=== PATIENT | male | born 1960 | race Caucasian/White ===

== ENCOUNTER 2017-05-11 23:28 | Inpatient (IN) | payer MEDICARE, MEDICAID ==
[~2017-05-11] VITALS: Ht 167.6 cm; Wt 98.0 kg
[~2017-05-11 23:28] MED LIST changes: -AMOX1TAB9 PO; -LACO150T4 PO; -LAMO25TA60 PO; -LISI5TAB25 PO; -MELO-207 PO
[2017-05-11] MEDS ORDERED: EMS NS 0.9%(*) 1000 ML BAG 1,000 ML IV ONE (23:35)
[2017-05-11] MEDS ORDERED: ONDANSETRON 4 MG/2 ML VIAL IVP ONE (23:35)
[2017-05-11] MEDS ORDERED: fentaNYL CITR 100 MCG/2 ML AMP IVP ONE (23:35)
--- NOTE | 2017-05-11 23:43 | ER Report ---
History and Physical Time Seen By MD: 23:42 Hx. of Stated Complaint: PT REPORTS THAT HE HAS SEVERE LOWER RIGHT QUAD PAIN. DENIES NAUSEA, VOMITING, DIARRHEA. HPI/ROS This is a 57-year-old male with a past medical history significant for hypertension and a seizure disorder. He states that he started to have right lower quadrant and right inguinal abdominal pain that started yesterday morning. It worsened throughout the day such that he said the pain brought him to tears while even at rest just before coming to the emergency department. No fever or chills. Does report anorexia. Pain is worse with movement. No dysuria. Has had nausea but no vomiting. Last ate or drank at 2330 when he drank a diet Pepsi. 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 ENGINEER 11/03/15 Reported Medications Lamotrigine (LAMOTRIGINE) 200 Mg Tablet, 200 MG PO DAILY 11/03/15 Lisinopril (LISINOPRIL) 20 Mg Tablet, 20 MG PO QDAY, TAB 11/03/15 Triamterene/Hydrochlorothiazid (TRIAMTERENE-HCTZ 37.5-25 MG CP) 1 Each Capsule, 1 EACH PO DAILY, CAPSULE 11/03/15 Past Medical/Surgical History Hypertension and seizure disorder Reviewed Nurses Notes: Yes Old Medical Records Reviewed: Yes Hx Smoking: No Smoking Status: Never Smoker Hx Substance Use Disorder: No Hx Alcohol Use: Yes (QUIT DRINKING 32 YEARS AGO) Constitutional Vital Sign - Last 24 Hours 05/11/17 05/11/17 05/11/17 05/12/17 23:45 23:55 23:57 00:00 Pulse 82 79 B/P (MAP) 82/54 (63) 95/54 (68) 88/56 (67) Pulse Ox 92 97 05/12/17 05/12/17 05/12/17 00:00 00:30 00:45 Pulse 90 90 B/P (MAP) 117/71 (86) Pulse Ox 100 99 O2 Flow Rate 2.0 Physical Exam General Appearance: The patient is alert, has no immediate need for airway protection and no signs of toxicity. Eyes: Pupils equal and round no pallor or injection. ENT, Mouth: Mucous membranes are moist. Respiratory: There are no retractions, lungs are clear to auscultation. Cardiovascular: Regular rate and rhythm. Gastrointestinal: RLQ TTP, guarding, rebound TTP of the RLQ Neurological: grossly normal strength and sensation Skin: Warm and dry, no rashes. Musculoskeletal: Neck is supple non tender. Extremities are nontender, nonswollen and have full range of motion. [ ] DIFFERENTIAL DIAGNOSIS: After history and physical exam differential diagnosis was considered for abdominal pain including but not limited to appendicitis, cholecystitis, gastritis and urinary tract infection. Medical Decision Making Data Points Result Diagram: 05/11/17 2303 05/11/17 2303 Laboratory Hematology Test 05/11/17 01:12 05/11/17 23:03 Urine Color Yellow Urine Clarity Clear Urine pH 6.0 pH (4.8-9.5) Urine Specific [place] 1.046 Urine Protein Negative mg/dL (NEGATIVE) Urine Glucose (UA) Negative mg/dL (NEGATIVE) Urine Ketones Negative mg/dL (NEGATIVE) Urine Blood Negative (NEGATIVE) Urine Nitrite Negative (NEGATIVE) Urine Bilirubin Negative (NEGATIVE) Urine Urobilinogen 2.0 mg/dL (0.2-1.9) Urine Leukocyte Esterase Negative (NEGATIVE) Urine RBC None /HPF (0-2/HPF) Urine WBC 1 /HPF (0-5/HPF) Urine Squamous Epithelial Cells None /LPF (</=FEW) Urine Bacteria Negative /HPF (NONE-FEW) Urine Mucus Few /HPF (NONE-FEW) Red Blood Count 5.96 M/uL (4.00-5.60) Mean Corpuscular Volume 84.1 fL (80.0-96.0) Mean Corpuscular Hemoglobin 28.0 pg (26.0-33.0) Mean Corpuscular Hemoglobin Concent 33.3 g/dL (32.0-36.0) Red Cell Distribution Width 13.0 % (11.5-14.5) Mean Platelet Volume 8.5 fL (7.2-11.1) Neutrophils (%) (Auto) 60.7 % (39.4-72.5) Lymphocytes (%) (Auto) 28.8 % (17.6-49.6) Monocytes (%) (Auto) 7.8 % (4.1-12.4) Eosinophils (%) (Auto) 2.2 % (0.4-6.7) Basophils (%) (Auto) 0.5 % (0.3-1.4) Nucleated RBC Relative Count (auto) 0.0 /100WBC Neutrophils # (Auto) 8.6 K/uL (2.0-7.4) Lymphocytes # (Auto) 4.1 K/uL (1.3-3.6) Monocytes # (Auto) 1.1 K/uL (0.3-1.0) Eosinophils # (Auto) 0.3 K/uL (0.0-0.5) Basophils # (Auto) 0.1 K/uL (0.0-0.1) Nucleated RBC Absolute Count (auto) 0.01 K/uL Peripheral Blood Smear No Y/N Sodium Level 138 mmol/L (137-145) Potassium Level 4.0 mmol/L (3.5-5.0) Chloride Level 100 mmol/L (98-107) Carbon Dioxide Level 25 mmol/L (22-30) Blood Urea Nitrogen 22 mg/dl (9-21) Creatinine 1.40 mg/dl (0.66-1.25) Glomerular Filtration Rate Calc 52.1 Random Glucose 150 mg/dl (75-110) Calcium Level 10.0 mg/dl (8.4-10.2) Total Bilirubin 0.5 mg/dl (0.2-1.3) Aspartate Amino Transf (AST/SGOT) 21 U/L (0-35) Alanine Aminotransferase (ALT/SGPT) 26 U/L (0-56) Alkaline Phosphatase 127 U/L (0-126) Total Protein 7.1 gm/dl (6.3-8.2) Albumin 4.1 g/dl (3.5-5.0) Lipase 211 U/L (23-300) Chemistry Test 05/11/17 01:12 05/11/17 23:03 Urine Color Yellow Urine Clarity Clear Urine pH 6.0 pH (4.8-9.5) Urine Specific [place] 1.046 Urine Protein Negative mg/dL (NEGATIVE) Urine Glucose (UA) Negative mg/dL (NEGATIVE) Urine Ketones Negative mg/dL (NEGATIVE) Urine Blood Negative (NEGATIVE) Urine Nitrite Negative (NEGATIVE) Urine Bilirubin Negative (NEGATIVE) Urine Urobilinogen 2.0 mg/dL (0.2-1.9) Urine Leukocyte Esterase Negative (NEGATIVE) Urine RBC None /HPF (0-2/HPF) Urine WBC 1 /HPF (0-5/HPF) Urine Squamous Epithelial Cells None /LPF (</=FEW) Urine Bacteria Negative /HPF (NONE-FEW) Urine Mucus Few /HPF (NONE-FEW) White Blood Count 14.2 k/uL (4.5-11.0) Red Blood Count 5.96 M/uL (4.00-5.60) Hemoglobin 16.7 g/dL (14.0-18.0) Hematocrit 50.1 % (42.0-52.0) Mean Corpuscular Volume 84.1 fL (80.0-96.0) Mean Corpuscular Hemoglobin 28.0 pg (26.0-33.0) Mean Corpuscular Hemoglobin Concent 33.3 g/dL (32.0-36.0) Red Cell Distribution Width 13.0 % (11.5-14.5) Platelet Count 324 K/uL (150-450) Mean Platelet Volume 8.5 fL (7.2-11.1) Neutrophils (%) (Auto) 60.7 % (39.4-72.5) Lymphocytes (%) (Auto) 28.8 % (17.6-49.6) Monocytes (%) (Auto) 7.8 % (4.1-12.4) Eosinophils (%) (Auto) 2.2 % (0.4-6.7) Basophils (%) (Auto) 0.5 % (0.3-1.4) Nucleated RBC Relative Count (auto) 0.0 /100WBC Neutrophils # (Auto) 8.6 K/uL (2.0-7.4) Lymphocytes # (Auto) 4.1 K/uL (1.3-3.6) Monocytes # (Auto) 1.1 K/uL (0.3-1.0) Eosinophils # (Auto) 0.3 K/uL (0.0-0.5) Basophils # (Auto) 0.1 K/uL (0.0-0.1) Nucleated RBC Absolute Count (auto) 0.01 K/uL Peripheral Blood Smear No Y/N Glomerular Filtration Rate Calc 52.1 Calcium Level 10.0 mg/dl (8.4-10.2) Total Bilirubin 0.5 mg/dl (0.2-1.3) Aspartate Amino Transf (AST/SGOT) 21 U/L (0-35) Alanine Aminotransferase (ALT/SGPT) 26 U/L (0-56) Alkaline Phosphatase 127 U/L (0-126) Total Protein 7.1 gm/dl (6.3-8.2) Albumin 4.1 g/dl (3.5-5.0) Lipase 211 U/L (23-300) Urinalysis Test 05/11/17 01:12 Urine Color Yellow Urine Clarity Clear Urine pH 6.0 pH (4.8-9.5) Urine Specific [place] 1.046 Urine Protein Negative mg/dL (NEGATIVE) Urine Glucose (UA) Negative mg/dL (NEGATIVE) Urine Ketones Negative mg/dL (NEGATIVE) Urine Blood Negative (NEGATIVE) Urine Nitrite Negative (NEGATIVE) Urine Bilirubin Negative (NEGATIVE) Urine Urobilinogen 2.0 mg/dL (0.2-1.9) Urine Leukocyte Esterase Negative (NEGATIVE) Urine RBC None /HPF (0-2/HPF) Urine WBC 1 /HPF (0-5/HPF) Urine Squamous Epithelial Cells None /LPF (</=FEW) Urine Bacteria Negative /HPF (NONE-FEW) Urine Mucus Few /HPF (NONE-FEW) EKG/Imaging Imaging Results: CT scan of the abdomen and pelvis was obtained. The results of the study are acute appendicitis. The study was read by the radiologist. I viewed the images myself on the PACS system. ED Course/Re-evaluation ED Course 57-year-old male with acute episode of right lower quadrant pain that worsened throughout the day. Also with anorexia and nausea. CT scan of the abdomen and pelvis is consistent with acute appendicitis. Physical exam is also consistent with acute appendicitis given his right lower quadrant tenderness to palpation and guarding. He has been given Zosyn, and Dr. Mansfield has been consulted. The patient will be admitted, and go to the operating room in a few hours. Decision to Disposition Date: May 12, 2017 Decision to Disposition Time: 01:32 Depart Departure Latest Vital Signs Vital Signs Date Time Temp Pulse Resp B/P (MAP) Pulse Ox O2 Delivery O2 Flow Rate FiO2 05/12/17 00:45 90 99 05/12/17 00:30 117/71 (86) 05/12/17 00:00 2.0 Impression: Primary Impression: Appendicitis Condition: Improved Disposition: Admitted from ER Referrals: MAHI RIVAS (PCP) Problem Qualifiers Primary Impression: Appendicitis Appendicitis type: acute appendicitis Acute appendicitis type: with localized peritonitis Qualified Codes: K35.3 - Acute appendicitis with localized peritonitis JAMARI HOWE MD May 11, 2017 23:43
[2017-05-11 23:54] LABS: PLATELET COUNT, AUTOMATED 324 K/uL (150-450)
[2017-05-11] MEDS ORDERED: IOPAMIDOL 76% 75 ML INFUS BTL 75 ML ONE (23:55)
[2017-05-11] MEDS ORDERED: NS 0.9% 50 ML VIAL 50 ML ONE (23:55)
[2017-05-12] VITALS (30 sets, daily range): BP systolic 95–130; BP diastolic 53–68; Ht 167.6 cm; Wt 98.0 kg
--- NOTE | 2017-05-12 01:08 | RADIOLOGY IMAGING REPORT ---
FACILITY: [facility] [place] PATIENT NAME: Vicente Patton : 1960 MR: [id number] V: [id number] EXAM DATE: ORDERING PHYSICIAN: JAMARI HOWE TECHNOLOGIST: Location: [facility] [place] Patient: Vicente Patton : 1960 Visit/Account:[id number] Date of Sevice: 05/11/2017 EXAMINATION: CT abdomen with IV contrast CT pelvis with IV contrast History: Right lower quadrant tender to palpation TECHNIQUE: Spiral scan was through the abdomen and pelvis during injection of nonionic iodinated in travenous contrast. One of the following dose optimization techniques was utilized in the performance of this exam: Automated exposure control; adjustment of the mA and/or kV according to the patient's size; or use of an iterative reconstruction technique. Specific details can be referenced in the [facility]'s radiology CT exam operational policy. Contrast: 75 mL of IV Isovue-370. COMPARISON STUDIES: none. FINDINGS: Lower chest: negative Liver / biliary: 1 cm hypodensity in the right lobe of the liver probably a cyst but too small to marcin quately characterize. Pancreas: negative Spleen: negative Adrenal glands: negative Kidneys / retroperitoneum: Nonobstructing bilateral nephrolithiasis. Pelvic structures: negative Bowel / peritoneum / mesenteries: Inflamed appendix containing appendicolith. No evidence of abscess. Vessels: negative Musculoskeletal / Body wall: negative Lymph node assessment: negative IMPRESSION: 1. Acute appendicitis with presence of an appendicolith. No evidence of abscess. 2. Nonobstructing bilateral nephrolithiasis. Results were called to JAMARI HOWE at 0100 hours. . Report Dictated By: Med Davis MD at 05/12/2017 12:56 AM Report E-Signed By: Med Davis MD at 05/12/2017 1:02 AM WSN:[id number]
[2017-05-12] MEDS ORDERED: PIPERACILLIN/TAZO* 4.5 GM VIAL 4.5 GM in NS(*) 0.9% 100 ML ADDVANT BAG 100 ML IVPB ONE (01:15)
[2017-05-12] MEDS ORDERED: LISI5TAB25 PO (01:59)
[2017-05-12] MEDS ORDERED: LAMO25TA60 PO ×2 (01:59)
[2017-05-12] MEDS ORDERED: LAMO200T45 PO (01:59)
[2017-05-12] MEDS ORDERED: LACO150T4 PO (01:59)
[2017-05-12] MEDS ORDERED: MELO-207 PO (01:59)
[2017-05-12] MEDS ORDERED: LR(*) 1000 ML BAG 1,000 ML IV ONE (04:55)
[2017-05-12] MEDS ORDERED: PROMETHAZINE 25 MG/ML 1 ML AMP IVP PRN (04:55)
[2017-05-12] MEDS ORDERED: ACETAMINOPHEN(*)1000 MG/100 ML 100 ML IVPB ONE (04:55)
[2017-05-12] MEDS ORDERED: ONDANSETRON 4 MG/2 ML VIAL IVP PRN (04:55)
[2017-05-12] MEDS ORDERED: FLUSH 10 ML SYR IVP PRN (04:55)
[2017-05-12] MEDS ORDERED: LR(*) 1000 ML BAG 1,000 ML ONE (05:00)
--- NOTE | 2017-05-12 05:06 | Gen Surgery History & Physical ---
History of Present Illness Chief Complaint Abdominal pain History of Present Illness 57yo male presents with a 10 day h/o vague intermittent abdominal pain with constipation. Yesterday evening, about 9 hours ago it acutely worsened prompting him to present to the ER for evaluation. No F/C, no diarrhea, no N/ V. WBC 14K and CT c/w appendicitis with appendicolith. History Problems: (1) Hypertension Status: Chronic (2) Epilepsy Status: Chronic Home Meds Reported Medications Lamotrigine (LAMOTRIGINE) 200 Mg Tablet, 200 MG PO BID 05/12/17 Lamotrigine (LAMOTRIGINE) 25 Mg Tablet, 75 MG PO HS 05/12/17 Lamotrigine (LAMOTRIGINE) 25 Mg Tablet, 25 MG PO DAILY 05/12/17 Meloxicam (MELOXICAM) 15 Mg Tablet, 15 MG PO QDAY 05/12/17 Lacosamide (VIMPAT) 150 Mg Tablet, 150 MG PO BID 05/12/17 Lisinopril (LISINOPRIL) 5 Mg Tablet, 5 MG PO QDAY, TAB 05/12/17 Triamterene/Hydrochlorothiazid (TRIAMTERENE-HCTZ 37.5-25 MG CP) 1 Each Capsule, 1 EACH PO DAILY, CAPSULE 11/03/15 Discontinued Reported Medications Lamotrigine (LAMOTRIGINE) 200 Mg Tablet, 200 MG PO DAILY 11/03/15 Lisinopril (LISINOPRIL) 20 Mg Tablet, 20 MG PO QDAY, TAB 11/03/15 Discontinued Scripts Azithromycin (Z-PACK) 250 Mg Tablet, 250 MG PO QDAY, #6 DOSE-PACK take 2 today, then 1 every day until gone Prov:LIBBY IBANEZ 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 Review of Systems All Systems Reviewed/Normal: Yes, Except as Noted Constitutional: Fever Gastrointestinal: Constipation, Abdominal Pain Exam General Appearance: Alert, Awake, No Acute Distress, Afebrile Neuro: No Gross deficits Eyes: PERRLA GI: Other (Soft, diffuse lower abdominal TTP, focal peritonitis in RLQ) Extremities: Warm, Perfused Medical Decision Making Data Points Result Diagram: 05/11/17230205/11/172302 Assessment and Plan Problems: (1) Appendicitis Status: Acute Assessment & Plan: 05/12/17: Admit, NPO, IV fluids, IV abx, to OR for lap appy. I've explained appendicitis and its treatment in detail to the patient. I've also explained the surgery in detail as well as the alternatives and risks. He indicates his understanding of the PAR discussion and his questions have been answered. He would like to proceed with surgery. Condition Stable. Time Spent: < 30 min Venous Thromboembolism VTE Risk Physician Assess for VTE Risk: Yes Patient's VTE Risk: Low VTE Diagnostic Test 2 Days Prior to Admit: No Antithrombotics Is Pt On Any Antithrombotics?: No Problem Qualifiers (1) Appendicitis: Appendicitis type: acute appendicitis Acute appendicitis type: with localized peritonitis Qualified Codes: K35.3 - Acute appendicitis with localized peritonitis BINA BRAXTON MD May 12, 2017 05:06
[2017-05-12] MEDS ORDERED: PIPERACILLIN/TAZO*3.375GM VIAL 3.375 GM in NS(*) 0.9% 100 ML ADDVANT BAG 100 ML IVPB ONE (05:30)
[2017-05-12] MEDS ORDERED: fentaNYL CITR 100 MCG/2 ML AMP ONE (05:52)
[2017-05-12] MEDS ORDERED: LIDOCAINE MPF 1% 5 ML VIAL ONE (05:53)
[2017-05-12] MEDS ORDERED: ONDANSETRON 4 MG/2 ML VIAL ONE (05:53)
[2017-05-12] MEDS ORDERED: DEXAMETHASONE SOD PHOS 10MG/ML ONE (05:53)
[2017-05-12] MEDS ORDERED: PROPOFOL EMUL(*) 10MG/ML 20 ML 20 ML ONE (05:53)
[2017-05-12] MEDS ORDERED: MIDAZOLAM 2 MG/2 ML VIAL ONE (05:58)
[2017-05-12] MEDS ORDERED: SUCCINYLCHOL CHL 100MG/5ML SYR IVP ONE (06:15)
[2017-05-12] MEDS ORDERED: ROCURONIUM BROM 10 MG/ML 5 ML ONE (06:15)
[2017-05-12] MEDS ORDERED: SUGAMMADEX SOD 200 MG/2 ML SDV ONE (06:38)
--- NOTE | 2017-05-12 07:22 | Post Operative Progress Note ---
Post Operative Progress Note Date: May 12, 2017 Time: 07:08 Surgeon: Anthony Dictation number: [id number] Anesthesia: GETA by Dr. Grove Pre-Op Diagnosis: Acute appendicitis Post-Op Diagnosis: Perforated appendicitis Findings: Large appendicolith in mid-appendix with 2 perforations, 1 at the tip of the appendix and the second where the appendicolith was located. There was adjacent fecal material next to the appendix and free purulent fluid in RLQ and in pelvis. No organized abscess. Procedure(s): Lap appy Specimen Removed:(May be N/A): Appendix with intraluminal appendicolith Complications: None Fluids: See anesthesia record Estimated Blood Loss: Minimal Date OP Note Dictated: May 12, 2017 Time OP Note Dictated: 07:14 BINA BRAXTON MD May 12, 2017 07:22
[2017-05-12] MEDS: NS(*) 0.9% 1000 ML BAG 1,000 ML IV PRN ×3 (08:12→23:54)
[2017-05-12] MEDS: PANTOPRAZOLE SOD 40 MG IV VIAL IVP SCH (09:07)
--- NOTE | 2017-05-12 12:44 | ULLRICH LAP CHOLE ---
EVENT DATE: May 12, 2017 SURGEON: Cody Cruz MD ANESTHESIOLOGIST: Mohamud Grove MD ANESTHESIA: General endotracheal PREOPERATIVE DIAGNOSIS Acute appendicitis. POSTOPERATIVE DIAGNOSIS Perforated appendicitis. PROCEDURE PERFORMED Laparoscopic appendectomy. COMPLICATIONS None. CONDITION Stable. BLOOD LOSS Minimal. FINDINGS This patient had an obviously inflamed appendix that was adherent to the lower abdominal side wall with overlying adherent omentum. In the mid shaft of the appendix was a large appendicolith. There were two perforations, one at the level of the appendicolith in the side wall of the appendix, and one at the tip of the appendix. There was some adjacent fecal material next to the appendix. There was some adjacent fecal material next to the appendix. There was purulent fluid in the right lower quadrant down on the pelvis. There was no organized abscess. There was diffuse serositis on the small bowel in the bowel next to the right lower quadrant and in the pelvis. SPECIMENS Appendix and the appendicolith contained within in the appendix. INDICATIONS This is 57-year-old gentleman who presented to the emergency department with a complaint of persisting worsening abdominal pain, mainly in the right lower quadrant. He reports his symptoms have been going on intermittently for 10 days , but worse in the last 3 days, and then worse last night, prompting him to come into the emergency room around midnight. A CT scan was consistent with appendicitis, and so he was admitted and started on IV antibiotics and consented for a laparoscopic appendectomy. DESCRIPTION OF PROCEDURE The patient was brought into the operating room and placed supine on the operating table. General endotracheal anesthesia was administered and his abdomen was prepped and draped in a sterile fashion. Time out was completed, and I injected the infraumbilical skin with 0.5% ropivacaine plain and made a vertical midline incision going from the base of the umbilicus over the inferior umbilical rim, and then dissected down through the dermis and into subcutaneous fat. I identified the midline fascia, made an incision in the midline fascia, grasped the fascial edges with Jc clamps, and then bluntly entered the peritoneal cavity with my finger. I placed 2 interrupted #0-Vicryl sutures transversely through the vertical fascial defect and inserted a 12 mm Austin type port through this wound and secured it into place with the sutures. I insufflated his abdomen to a pressure of 15 mmHg and inserted a 5 mm, 30- degree angle scope through this port. Next, under direct visualization, I placed a 5 mm port in the suprapubic midline and a 5 mm port in the left lower quadrant. The patient was placed in Trendelenburg and planed towards his left to move the viscera away from the right lower quadrant. Immediately evident was purulent material down in the pelvis as well as the right lower quadrant that was evident even before I visualized the appendix. I then swept the small bowel away from the right lower quadrant as well as the omentum. The omentum was densely adhered to the lower abdominal side wall, and so I divided this with the harmonic scalpel. This uncovered the appendix, which was grossly inflamed. The tip of the appendix demonstrated a perforation. I then the appendix, which was adherent to the side wall due to the inflammatory process, and was able to mobilize it quite easy, and then when I got to the shaft, I saw feculent material coming out of a lateral wall perforation, and this was in the area where it was obviously dilated with an obstructing appendicolith in the mid shaft of the appendix. I was able to completely mobilize the appendix down to its base and could obviously see the cecum and divided the mesoappendix with the harmonic scalpel, and then divided the base of the appendix flush with the cecum with the Endo CHAR 45 mm stapler with a blue load. The appendix was placed in the surgical specimen retrieval bag and removed from the abdomen through the umbilical port site. I then irrigated the right lower quadrant as well as the pelvis, and removed all purulent and feculent-appearing material until the irrigation fluid ran clear. There was no bleeding from the divided mesoappendix or the staple line, and the staple line was flush with the cecum with no residual appendix remaining and no interference with the terminal ileum was it entered into the colon. I looked around the rest of the abdomen, did not find any other evidence of pathology, and no other fluid collections. At this point, I made sure I removed all of the irrigation fluid from the pelvis and right lower quadrant, had the anesthesiologist flatten the bed, and moved the bowel and omentum back down into its appropriate anatomic position, especially covering up the right lower quadrant and the operative site, and then removed the 5 mm ports, inspected their peritoneal surfaces for bleeding, and there was none. I removed the camera followed by the umbilical port and desufflated the abdomen. I placed a figure-of--eight #0-Vicryl suture transversely through the vertical fascial defect and tied all three of the sutures down with good reapproximation of the fascial edges and no remaining fascial defect. The skin at each port site was closed with 4-0 Monocryl running subcuticular sutures. The skin was cleaned and dried and Steri-Strips were applied followed by sterile surgical dressings. The patient was awakened and extubated in the operating room and transported to the recovery room in stable condition having tolerated the procedure without any apparent problems. CARMELITA
[2017-05-12] MEDS: PIPERACILLIN/TAZO*3.375GM VIAL 3.375 GM in NS(*) 0.9% 100 ML ADDVANT BAG 100 ML IVPB SCH ×2 (17:34→23:47)
[2017-05-12] MEDS: lamoTRIgine 100 MG TAB PO SCH (20:17)
[2017-05-12] MEDS: lamoTRIgine 25 MG TAB PO SCH (20:18)
[2017-05-12] MEDS ORDERED: PATIENT'S OWN MED PO SCH (21:00)
[2017-05-12] MEDS: MORPHINE 2 MG/ML SYR IVP PRN (23:47)
[2017-05-13] VITALS (9 sets, daily range): BP systolic 87–123; BP diastolic 54–67
[2017-05-13] MEDS: MORPHINE 2 MG/ML SYR IVP PRN ×3 (03:57→16:01)
[2017-05-13] MEDS: PIPERACILLIN/TAZO*3.375GM VIAL 3.375 GM in NS(*) 0.9% 100 ML ADDVANT BAG 100 ML IVPB SCH ×4 (05:17→23:18)
--- NOTE | 2017-05-13 06:16 | General Surgery Progress Note ---
Subjective Progress Notes Subjective C/O pain in right lower quadrant but improving. Passing flatus. No N/V. Feels hungry. Physical Exam Vital Signs Date Time Temp Pulse Resp B/P (MAP) Pulse Ox O2 Delivery O2 Flow Rate FiO2 05/13/17 04:00 98.0 78 16 97/61 (73) 93 Nasal Cannula 2.0 General Appearance: Alert, Awake, No Acute Distress, Afebrile GI: Other (Soft, appropriate postop TTP, dressings C/D/I.) Extremities: Warm, Perfused Result Diagram: 05/11/17 2303 05/11/173 Assessment and Plan Problems: (1) Appendicitis Status: Acute Assessment & Plan: 05/12/17: Admit, NPO, IV fluids, IV abx, to OR for lap appy. I've explained appendicitis and its treatment in detail to the patient. I've also explained the surgery in detail as well as the alternatives and risks. He indicates his understanding of the PAR discussion and his questions have been answered. He would like to proceed with surgery. 05/13/17: POD#1 s/p lap appy, perforated appendicitis. Doing well this morning. Will advance diet to clears and decrease IV fluids. Continue IV abx. If tolerates clears will start regular diet later today and convert meds to PO including PO abx with hope for d/c to home tomorrow on 7 days of PO abx. Condition Stable. Time Spent: < 30 min Exam Sepsis Risk: Sepsis Risk Problem Qualifiers (1) Appendicitis: Appendicitis type: acute appendicitis Acute appendicitis type: with localized peritonitis Qualified Codes: K35.3 - Acute appendicitis with localized peritonitis BINA BRAXTON MD May 13, 2017 06:16
[2017-05-13 08:12] LABS: PLATELET COUNT, AUTOMATED 168 K/uL (150-450)
[2017-05-13] MEDS: lamoTRIgine 100 MG TAB PO SCH ×2 (08:59→20:21)
[2017-05-13] MEDS: lamoTRIgine 25 MG TAB PO SCH ×2 (08:59→20:21)
[2017-05-13] MEDS ORDERED: LISINOPRIL 5 MG TAB PO SCH (09:00)
[2017-05-13] MEDS: PANTOPRAZOLE SOD 40 MG IV VIAL IVP SCH (09:00)
[2017-05-13] MEDS ORDERED: HCTZ PO SCH (09:00)
[2017-05-13] MEDS ORDERED: TRIAMTERENE PO SCH (09:00)
[2017-05-13] MEDS ORDERED: PATIENT'S OWN MED PO SCH (09:00)
[2017-05-13] MEDS: NS(*) 0.9% 1000 ML BAG 1,000 ML IV PRN (13:58)
[2017-05-14 03:43] VITALS: BP 124/64
[2017-05-14] MEDS: PIPERACILLIN/TAZO*3.375GM VIAL 3.375 GM in NS(*) 0.9% 100 ML ADDVANT BAG 100 ML IVPB SCH (05:52)
[2017-05-14] MEDS: NS(*) 0.9% 1000 ML BAG 1,000 ML IV PRN (05:54)
[2017-05-14 06:00] LABS: PLATELET COUNT, AUTOMATED 147 K/uL (150-450)
[2017-05-14 08:23] VITALS: BP 122/72
[2017-05-14] MEDS: LACOSAMIDE 150 MG TABLET PO SCH (08:31)
[2017-05-14] MEDS: TRIAMTERENE PO SCH (08:31)
[2017-05-14] MEDS: HCTZ PO SCH (08:31)
[2017-05-14] MEDS: lamoTRIgine 25 MG TAB PO SCH ×2 (08:33→20:27)
[2017-05-14] MEDS: lamoTRIgine 100 MG TAB PO SCH ×2 (08:33→20:27)
[2017-05-14] MEDS: LISINOPRIL 5 MG TAB PO SCH (08:33)
[2017-05-14] MEDS: PANTOPRAZOLE SOD 40 MG IV VIAL IVP SCH (08:34)
--- NOTE | 2017-05-14 09:22 | General Surgery Progress Note ---
Subjective Progress Notes Subjective can I have a diet Pepsi? Patient Complains of: Musculoskeletal: Impaired Mobility Physical Exam Vital Signs Date Time Temp Pulse Resp B/P (MAP) Pulse Ox O2 Delivery O2 Flow Rate FiO2 05/14/17 08:27 96 Nasal Cannula 2.0 05/14/17 08:23 97.9 67 18 122/72 (89) General Appearance: Alert, Awake Neuro: No Gross deficits Cardiovascular: Regular Rate and Rhythm Respiratory: Clear to Auscultation GI: Other (incisions dressed, soft, non tender, few bowel sounds.) Extremities: Edema (2+) Result Diagram: 05/14/1753205/14/17532 Assessment and Plan Problems: (1) Appendicitis Status: Acute Assessment & Plan: 05/12/17: Admit, NPO, IV fluids, IV abx, to OR for lap appy. I've explained appendicitis and its treatment in detail to the patient. I've also explained the surgery in detail as well as the alternatives and risks. He indicates his understanding of the PAR discussion and his questions have been answered. He would like to proceed with surgery. 05/13/17: POD#1 s/p lap appy, perforated appendicitis. Doing well this morning. Will advance diet to clears and decrease IV fluids. Continue IV abx. If tolerates clears will start regular diet later today and convert meds to PO including PO abx with hope for d/c to home tomorrow on 7 days of PO abx. 05/14/17: POD #2 S/P lap appendectomy for perforated appendicitis. He still has not had a bowel movement but has much flatus. Advance diet to full liquids, saline lock intravenous and allow Pepsi. He still has fullness so will not advance diet to regular. Should he have a bowel movement, will advance diet. Hopefully, ready for discharge tomorrow with po antibiotics. Exam Sepsis Risk: No Definite Risk Problem Qualifiers (1) Appendicitis: Appendicitis type: acute appendicitis Acute appendicitis type: with localized peritonitis Qualified Codes: K35.3 - Acute appendicitis with localized peritonitis LASHANDA ALMENDAREZ MD May 14, 2017 09:22
[2017-05-14] MEDS ORDERED: APAP/HYDROCODONE 325/5 TAB PO PRN (09:30)
[2017-05-14 10:53] VITALS: BP 112/66
[2017-05-14 15:36] VITALS: BP 131/76
[2017-05-14] MEDS: AMOX/CLAV 875 MG TAB PO SCH (16:24)
[2017-05-14 19:22] VITALS: BP 135/80
[2017-05-14 22:59] VITALS: BP 143/79
[2017-05-15 04:26] VITALS: BP 108/60
[2017-05-15 07:30] VITALS: BP 116/73
[2017-05-15] MEDS: AMOX/CLAV 875 MG TAB PO SCH ×2 (08:45→17:10)
[2017-05-15] MEDS: LISINOPRIL 5 MG TAB PO SCH (08:45)
[2017-05-15] MEDS: PANTOPRAZOLE SOD 40 MG IV VIAL IVP SCH (08:46)
[2017-05-15] MEDS: lamoTRIgine 100 MG TAB PO SCH ×2 (08:46→20:25)
[2017-05-15] MEDS: HCTZ PO SCH (08:46)
[2017-05-15] MEDS: lamoTRIgine 25 MG TAB PO SCH ×2 (08:46→20:25)
[2017-05-15] MEDS: LACOSAMIDE 150 MG TABLET PO SCH (08:46)
[2017-05-15] MEDS: TRIAMTERENE PO SCH (08:46)
--- NOTE | 2017-05-15 10:03 | General Surgery Progress Note ---
Subjective Progress Notes Subjective "Do I have to keep these leg things on? Patient Complains of: Gastrointestinal: Other (abdominal fullness/discomfort) Physical Exam Vital Signs Date Time Temp Pulse Resp B/P (MAP) Pulse Ox O2 Delivery O2 Flow Rate FiO2 05/15/17 07:55 Nasal Cannula 1.0 05/15/17 07:30 98.3 66 14 116/73 (87) 98 Intake and Output 05/16/17 07:01 Intake Total 700 ml Balance 700 ml Intake Oral 700 ml General Appearance: Alert, Awake, No Acute Distress Cardiovascular: Other (occasional sinus irregularity) Respiratory: Clear to Auscultation GI: Soft and Non-Tender, Other (distended, active bowel sounds, flatus, no bowel movement) Extremities: Warm, Other (decreased edema) Result Diagram: 05/14/1753205/14/17532 Assessment and Plan Problems: (1) Appendicitis Status: Acute Assessment & Plan: 05/12/17: Admit, NPO, IV fluids, IV abx, to OR for lap appy. I've explained appendicitis and its treatment in detail to the patient. I've also explained the surgery in detail as well as the alternatives and risks. He indicates his understanding of the PAR discussion and his questions have been answered. He would like to proceed with surgery. 05/13/17: POD#1 s/p lap appy, perforated appendicitis. Doing well this morning. Will advance diet to clears and decrease IV fluids. Continue IV abx. If tolerates clears will start regular diet later today and convert meds to PO including PO abx with hope for d/c to home tomorrow on 7 days of PO abx. 05/14/17: POD #2 S/P lap appendectomy for perforated appendicitis. He still has not had a bowel movement but has much flatus. Advance diet to full liquids, saline lock intravenous and allow Peps[employer]. He still has fullness so will not advance diet to regular. Should he have a bowel movement, will advance diet. Hopefully, ready for discharge tomorrow with po antibiotics. 05/16/17: POD#3 S/P lap appy for perforated appendicitis. He is not eating a regular diet yet so will advance. He is having some abdominal pain which I think is needing to have a bowel movement. Further, he is not walking alot yet because of issues with his hips. Try to use wheelchair or get his regular walker which has a seat on it so he can walk further. Probably home in am. Exam Sepsis Risk: No Definite Risk Problem Qualifiers (1) Appendicitis: Appendicitis type: acute appendicitis Acute appendicitis type: with localized peritonitis Qualified Codes: K35.3 - Acute appendicitis with localized peritonitis LASHANDA ALMENDAREZ MD May 15, 2017 10:03
[2017-05-15 11:47] VITALS: BP 132/76
[2017-05-15 15:05] VITALS: BP 134/70
[2017-05-15 19:21] VITALS: BP 122/70
[2017-05-15 23:05] VITALS: BP 131/86
[2017-05-16 03:41] VITALS: BP 114/70
[2017-05-16 07:44] VITALS: BP 101/70
[2017-05-16] MEDS: AMOX/CLAV 875 MG TAB PO SCH (07:53)
[2017-05-16] MEDS ORDERED: AMOX1TAB9 PO (08:00)
--- NOTE | 2017-05-16 08:02 | Short(Outpt) Discharge Summary ---
Discharge Summary Reason for Hosp/Final Diag: (1) Appendicitis Status: Acute Hospital Course & Plan: 05/12/17: Admit, NPO, IV fluids, IV abx, to OR for lap appy. I've explained appendicitis and its treatment in detail to the patient. I've also explained the surgery in detail as well as the alternatives and risks. He indicates his understanding of the PAR discussion and his questions have been answered. He would like to proceed with surgery. 05/13/17: POD#1 s/p lap appy, perforated appendicitis. Doing well this morning. Will advance diet to clears and decrease IV fluids. Continue IV abx. If tolerates clears will start regular diet later today and convert meds to PO including PO abx with hope for d/c to home tomorrow on 7 days of PO abx. 05/14/17: POD #2 S/P lap appendectomy for perforated appendicitis. He still has not had a bowel movement but has much flatus. Advance diet to full liquids, saline lock intravenous and allow Pepsi. He still has fullness so will not advance diet to regular. Should he have a bowel movement, will advance diet. Hopefully, ready for discharge tomorrow with po antibiotics. 05/15/17: POD#3 S/P lap appy for perforated appendicitis. He is not eating a regular diet yet so will advance. He is having some abdominal pain which I think is needing to have a bowel movement. Further, he is not walking alot yet because of issues with his hips. Try to use wheelchair or get his regular walker which has a seat on it so he can walk further. Probably home in am. 05/16/17: POD#4. Doing well. Passing flatus and BMs, tolerating regular diet. No abdominal pain. Ambulating with walker without problems. Will d/c to home today. Departure Discharge to: Home, Self Care Discharge Instructions Home Meds Active Scripts Amoxicillin/Potassium Clav (AMOX TR-K CLV 875-125 MG TAB) 1 Each Tablet, 1 TAB PO BIDBS, #10 TAB 0 Refills Prov:CODY BRAXTON MD 05/16/17 Reported Medications Lamotrigine (LAMOTRIGINE) 200 Mg Tablet, 200 MG PO BID 05/12/17 Lamotrigine (LAMOTRIGINE) 25 Mg Tablet, 75 MG PO HS 05/12/17 Lamotrigine (LAMOTRIGINE) 25 Mg Tablet, 25 MG PO DAILY 05/12/17 Meloxicam (MELOXICAM) 15 Mg Tablet, 15 MG PO QDAY 05/12/17 Lacosamide (VIMPAT) 150 Mg Tablet, 150 MG PO DAILY 05/12/17 Lisinopril (LISINOPRIL) 5 Mg Tablet, 5 MG PO QDAY, TAB 05/12/17 Triamterene/Hydrochlorothiazid (TRIAMTERENE-HCTZ 37.5-25 MG CP) 1 Each Capsule, 1 EACH PO DAILY, CAPSULE 11/03/15 Discontinued Reported Medications Lamotrigine (LAMOTRIGINE) 200 Mg Tablet, 200 MG PO DAILY 11/03/15 Lisinopril (LISINOPRIL) 20 Mg Tablet, 20 MG PO QDAY, TAB 11/03/15 Discontinued Scripts Azithromycin (Z-PACK) 250 Mg Tablet, 250 MG PO QDAY, #6 DOSE-PACK take 2 today, then 1 every day until gone Prov:LIBBY IBANEZ 11/03/15 Follow up Referrals: General Surgery - 05/24/17 @ Surgery, General with Cody Braxton Md You have a follow up appointment scheduled with Dr. Braxton on 05/24/17, at 4:30pm. Diet: Regular Activity: As Tolerated Special Instructions: You may take showers as desired but don't immerse the incisions for 2 weeks. Leave the incisions open to air but leave the steristrips in place until they fall off on their own. Problem Qualifiers (1) Appendicitis: Appendicitis type: acute appendicitis Acute appendicitis type: with localized peritonitis Qualified Codes: K35.3 - Acute appendicitis with localized peritonitis CODY BRAXTON MD May 16, 2017 08:02
[2017-05-16] MEDS: HCTZ PO SCH (08:36)
[2017-05-16] MEDS: lamoTRIgine 100 MG TAB PO SCH (08:36)
[2017-05-16] MEDS: LACOSAMIDE 150 MG TABLET PO SCH (08:36)
[2017-05-16] MEDS: PANTOPRAZOLE SOD 40 MG IV VIAL IVP SCH (08:36)
[2017-05-16] MEDS: lamoTRIgine 25 MG TAB PO SCH (08:36)
[2017-05-16] MEDS: TRIAMTERENE PO SCH (08:36)
[2017-05-16] MEDS: LISINOPRIL 5 MG TAB PO SCH (08:37)
== END 2017-05-16 10:05 | disposition home or self-care (01) | DRG 340 ==
LOC: ER 23:34 → INTOOBSV 05-12 01:48 → ICU 05-12 01:48 → OBSVTOIN 05-12 01:48 → MED 05-13 15:10
PROVIDERS: ADMIT Surgery; ATTEND Surgery
PROC: 0DTJ4ZZ Resection of Appendix, Percutaneous Endoscopic Approach (ICD-10-PCS; principal; 2017-05-12 06:04)
DX: K35.3 Acute appendicitis with localized peritonitis (principal); I10 Essential (primary) hypertension; G40.909 Epilepsy, unspecified, not intractable, without status epilepticus; K38.1 Appendicular concretions
CPT/HCPCS: 36415; 74177; 81001; 82040; 82247; 82310; 82374; 82435; 82565; 82947; 83690; 84075; 84132; 84155; 84295; 84450; 84460; 84520; 85025; 88304; 96361; 96365; 96375; 97161; 99285; C9113; J0131; J0330; J1100; J2001; J2250; J2270; J2405; J2543; J2704; J3010; J7030; J7050; J7120; Q9967

== ENCOUNTER → 2017-05-11 | Outpatient (CLI) | payer MEDICARE ==
[~2017-05-11] MED LIST: AMOX1TAB9 PO; AZIT-17 PO; LACO150T4 PO; LAMO200T45 PO; LAMO25TA60 PO; LISI20TA29 PO; LISI5TAB25 PO; MELO-207 PO; TRIA1CAP85 PO
[2017-05-12 08:17] VITALS: BMI 34.9
== END ==
LOC: AMB 22:51
PROVIDERS: ATTEND Nurse Practitioner
DX: R10.30 Lower abdominal pain, unspecified (principal); R42 Dizziness and giddiness
CPT/HCPCS: A0425; A0427